=== PATIENT | female | born 1985 | race Caucasian/White ===

== ENCOUNTER 2017-08-17 21:39 | Emergency (ER) | payer MEDICAID, SELFPAY ==
[2017-08-17 21:42] VITALS: BP 156/102; PULSE 132; RESP 22; TEMP 36; O2SAT 100; BMI 42.9
--- NOTE | 2017-08-17 22:23 | EKG12_ITS ---
Test Reason : POSSIBLE PE Blood Pressure : / mmHG Vent. Rate : 111 BPM Atrial Rate : 111 BPM P-R Int : 138 ms QRS Dur : 092 ms QT Int : 360 ms P-R-T Axes : 037 008 033 degrees QTc Int : 489 ms Sinus tachycardia Low voltage QRS (limb leads) Poor R wave progression Confirmed by RIAJ UNDERWOOD, GONZALO ([id number]), department editor ROXANA PHILIP ([id number] on 08/19/2017 2:16:59 PM Referred By: DR HITCHCOCK Confirmed By:GONZALO GALO MD
--- NOTE | 2017-08-17 22:28 | ED.VISSUMM ---
- ER Visit Summary Date of Service: 08/17/17 Chief Complaint: Dyspnea History of Present Illness: The patient is a 32 F 3 day history worsening dyspnea. Worse with exertion. No chest pains. No nausea or vomiting. [facility] She moved from [place]. States was seen today in the office, had blood work with the high d-dimer. She was called and sent to the ED at 5 PM. She states she went to [place] ED, was told they did not have the capacity to manage her symptoms. She admits to an IV dye allergy that would cause dyspnea and bradycardia. 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 There is no unclear etiology. She did see a business management consultant, she is on warfarin for a year. She reports that business management consultant in [place] told her that she should be on blood thinners for lifetime. However when moved over to [place], she was taken off after year. [facility] she told this to her physicians. They are trying to obtain records. Denies tobacco history. Denies recent travel. She did have surgery in April with right oophorectomy and appendectomy. She had hysterectomy and left oophorectomy last summer. She states she had a clotting disorder workup and may have been told she has a clotting disorder however she can tell me what it was. However there is a family history of clotting disorders. Physical Examination: General: Alert and oriented ?3, no acute distress HEENT: Normocephalic, atraumatic. Moist mucosa membranes Neck: supple, nontender. Cardiovascular: Regular rate 96 and rhythm, no murmurs Respiratory: Normal breath sounds, symmetric, no distress Abdomen: Soft, nontender, nondistended Extremities: Nontender, no edema, pulses intact ?4 Neuro: no focal neurological deficits. Test Results: EKG sinus tachycardia 111. No ST or T-wave changes. Labs no platelets 248. Hemoglobin 13. Troponin negative. Chest x-ray 2 views obtained negative. Emergency Department Course and Treatment: Patient is tachycardic in triage on recheck on my exam was 96. She is monitored vitals remained stable. The patient reported history that her business management consultant one her anticoagulation and possible clotting disorder on top of the PE. This was stopped 2012 by her [place] physicians. Reported elevated d-dimer with dyspnea symptoms. Patient is a higher probability for PE. She was given a dose of Lovenox. She has significant IV dye allergy. She states she cannot give it even with pretreatment due to hypotension and shortness of breath in the past. I did speak with her covering physician at [facility] Dr. Smith, discussed with her history of high probability to go ahead and pretreat and keep her on anticoagulation with outpatient following and testing if needed. Stated she did not feel comfortable with this not knowing her history. I did speak with hospitalist, Dr. Sommer, states with patient stability there no indication for hospitalizations for treatment when she can be empirically placed on medications. Her labs chest x-ray on normal. patient was ambulate with the pulse ox, heart rate normal range, pulse ox 98%. Discussed with patient plan of care she agrees to being back on anticoagulation medicines. She will be given a Lovenox bridge for 1 week in warfarin 5 mg for 1 week, first dose given in the ED. She will call her physicians tomorrow. She can determine if she continues anticoagulation versus possibly get a V/Q as an outpatient while on these medications. She has tolerated this in the past [facility]. She had no reaction to VQ scan. She return if any worsening symptoms. Risk and benefits discussed with anticoagulation medicines. Her platelets are normal. Patient wishes to pursue With current plan of care. Treatment Plan: [] Disposition: Discharge Impression: Dyspnea with presumed pulmonary embolism This note was generated with NPTV dictation software. It may contain incorrect words, spelling, and punctuation that were not noted in review of the chart prior to signing ED Disposition - Plan for ED Patient: Disposition: Home or Assisted Living Chief Complaint: Shortness of Breath Diagnosis: Dyspnea Instructions: ED Dyspnea Shortness of Breath Prescriptions: Warfarin [Coumadin] 5 mg PO DAILY #7 tablet Enoxaparin Sodium [Lovenox] 120 mg SQ BID #14 syringe Referrals: Georgina Machado, TIFF-C [Primary Care Provider] - 1 Day Additional Instructions: Dyspnea with presumed PE. Vital signs stable. Started on warfarin and Lovenox in the ED. Seven-day prescriptions are written. Follow-up with your doctor tomorrow, determine if they would want to get a VQ scan as an outpatient versus continued empiric treatment with your history.
--- NOTE | 2017-08-17 22:28 | ED.RN ---
NO OLD EKGS IN MUSE.
--- NOTE | 2017-08-17 22:33 | ED.DCSUM_ITS ---
- ER Visit Summary Date of Service: 08/17/17 Chief Complaint: Dyspnea History of Present Illness: The patient is a 32 F 3 day history worsening dyspnea. Worse with exertion. No chest pains. No nausea or vomiting. Patient recently started seeing [facility]. She moved from [place]. States was seen today in the office, had blood work with the high d- dimer. She was called and sent to the ED at 5 PM. She states she went to [place] ED, was told they did not have the capacity to manage her symptoms. She admits to an IV dye allergy that would cause dyspnea and bradycardia. 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 There is no unclear etiology. She did see a order takers supervisor, she is on warfarin for a year. She reports that order takers supervisor in [place] told her that she should be on blood thinners for lifetime. However when moved over to [place], she was taken off after year. [facility] she told this to her physicians. They are trying to obtain records. Denies tobacco history. Denies recent travel. She did have surgery in April with right oophorectomy and appendectomy. She had hysterectomy and left oophorectomy last summer. She states she had a clotting disorder workup and may have been told she has a clotting disorder however she can tell me what it was. However there is a family history of clotting disorders. Physical Examination: General: Alert and oriented ?3, no acute distress HEENT: Normocephalic, atraumatic. Moist mucosa membranes Neck: supple, nontender. Cardiovascular: Regular rate 96 and rhythm, no murmurs Respiratory: Normal breath sounds, symmetric, no distress Abdomen: Soft, nontender, nondistended Extremities: Nontender, no edema, pulses intact ?4 Neuro: no focal neurological deficits. Test Results: EKG sinus tachycardia 111. No ST or T-wave changes. Labs no platelets 248. Hemoglobin 13. Troponin negative. Chest x-ray 2 views obtained negative. Emergency Department Course and Treatment: Patient is tachycardic in triage on recheck on my exam was 96. She is monitored vitals remained stable. The patient reported history that her order takers supervisor one her anticoagulation and possible clotting disorder on top of the PE. This was stopped 2012 by her [place] physicians. Reported elevated d-dimer with dyspnea symptoms. Patient is a higher probability for PE. She was given a dose of Lovenox. She has significant IV dye allergy. She states she cannot give it even with pretreatment due to hypotension and shortness of breath in the past. I did speak with her covering physician at [facility] Dr. Smith, discussed with her history of high probability to go ahead and pretreat and keep her on anticoagulation with outpatient following and testing if needed. Stated she did not feel comfortable with this not knowing her history. I did speak with hospitalist, Dr. Sommer, states with patient stability there no indication for hospitalizations for treatment when she can be empirically placed on medications. Her labs chest x-ray on normal. patient was ambulate with the pulse ox, heart rate normal range, pulse ox 98%. Discussed with patient plan of care she agrees to being back on anticoagulation medicines. She will be given a Lovenox bridge for 1 week in warfarin 5 mg for 1 week, first dose given in the ED. She will call her physicians tomorrow. She can determine if she continues anticoagulation versus possibly get a V/Q as an outpatient while on these medications. She has tolerated this in the past [facility]. She had no reaction to VQ scan. She return if any worsening symptoms. Risk and benefits discussed with anticoagulation medicines. Her platelets are normal. Patient wishes to pursue With current plan of care. Treatment Plan: [] Disposition: Discharge Impression: Dyspnea with presumed pulmonary embolism This note was generated with InRadio dictation software. It may contain incorrect words, spelling, and punctuation that were not noted in review of the chart prior to signing ED Disposition - Plan for ED Patient: Disposition: Home or Assisted Living Chief Complaint: Shortness of Breath Diagnosis: Dyspnea Instructions: ED Dyspnea Shortness of Breath Prescriptions: Warfarin [Coumadin] 5 mg PO DAILY #7 tablet Enoxaparin Sodium [Lovenox] 120 mg SQ BID #14 syringe Referrals: Georgina Machado, TIFF-C [Primary Care Provider] - 1 Day Additional Instructions: Dyspnea with presumed PE. Vital signs stable. Started on warfarin and Lovenox in the ED. Seven-day prescriptions are written. Follow-up with your doctor tomorrow, determine if they would want to get a VQ scan as an outpatient versus continued empiric treatment with your history.
[2017-08-17 22:46] LABS: Absolute Lymphocyte Count 2.71 X10^3/ul (0.83-4.51); Absolute Neutrophil Count 5.2 X10^3/uL (2.0-7.7); Basophil# 0.03 X10^3/uL; Basophil% 0.4 % (0-1); Eosinophil# 0.13 X10^3/uL; Eosinophils% 1.5 % (0-5); Hematocrit 40.9 % (37-47); Hemoglobin 13.1 g/dl (12.0-15.0); Lymphocyte # 2.71 X10^3/ul (4.0); Lymphocyte % 31.7 % (19-41); Mean Corpuscular Hgb 27.9 pg (27.0-32.0); Mean Corpuscular Volume 87.2 fL (81-99); Mean Platelet Vol. 9.9 fl (6.2-12.0); Monocyte# 0.41 X10^3/uL; Monocyte% 4.8 % (0-10); Neutrophil # 5.18 X10^3/uL (2.7-7.7); Neutrophil % 60.7 % (47-70); POSITIVE COUNT NO; POSITIVE DIFFERENTIAL NO; POSITIVE MORPHOLOGY NO; Platelet Count 248 K/mm3 (150-450); RBC Distribution Width CV 14.1 % (11.6-14.6); RBC Distribution Width SD 44.3 fl (35.1-43.9); Red Blood Count 4.69 M/mm3 (4.2-5.4); White Blood Count 8.5 K/mm3 (4.4-11.0)
[2017-08-17 22:55] LABS: Prothrombin Time (Protime)PT. 13.1 SECONDS (11.7-14.9)
[2017-08-17 22:56] LABS: Partial Thromboplast Time 35.4 Seconds (24.1-36.2)
[2017-08-17 23:01] LABS: Anion Gap 6 (5-15); BUN 13 mg/dL (7-18); BUN/Creat Ratio 14.5 RATIO (10-20); Calcium,Total 9.1 mg/dL (8.5-10.1); Chloride 104 mmol/L (98-107); EST Glomerular Filtration Rate 76 mL/min (>60); Est Glom Filt Rate - Afr Amer 92 mL/min (>60); Estimated Creatinine Clearance 76.06 ml/min; Glucose 91 mg/dL (74-106); Potassium 3.8 mmol/L (3.5-5.1); Sodium Level 140 mmol/L (136-145)
--- NOTE | 2017-08-17 23:05 | RAD_ITS ---
STUDY: X-RAY CHEST REASON FOR EXAM: Female, 32 years old. Elevated d-dimer. Short of breath. Previous PEs. TECHNIQUE: Frontal and lateral views of the chest. COMPARISON: None. FINDINGS: The lungs are clear and expanded. There is no demonstrated pleural abnormality. Normal size heart. Normal mediastinum and brandon. Normal visualized pulmonary arteries. Normal visualized aortic arch and descending thoracic aorta. Normal visualized thoracic spine. Normal visualized ribs, clavicles, and shoulders. There is no demonstrated abnormality of the visualized soft tissue structures of the upper abdomen. RAD/Chest PA and Lateral IMPRESSION: Normal x-ray examination of the chest. Electronically Signed: Bello Galvez MD at 23:21 EDT , Service support ,
[2017-08-17] MEDS: Enoxaparin 120 MG/0.8 ML Syringe SC (23:32)
[2017-08-17 23:42] VITALS: BP 142/79; PULSE 84; RESP 16; O2SAT 98
[2017-08-18 00:46] VITALS: BP 117/86; PULSE 94; RESP 18; O2SAT 98
== END 2017-08-18 00:47 | disposition home or self-care (01) ==
PROVIDERS: Emergency Provider Emergency Medicine; Family Provider Nurse Practitioner Family; PCP Nurse Practitioner Family
DX: R06.00 Dyspnea, unspecified (principal); Z83.2 Family history of diseases of the blood and blood-forming organs and certain disorders involving the immune mechanism; I10 Essential (primary) hypertension; J45.909 Unspecified asthma, uncomplicated; Z86.711 Personal history of pulmonary embolism; Z79.01 Long term (current) use of anticoagulants
CPT/HCPCS: 71046; 80048; 84484; 85025; 85610; 85730; 93005; 96372; 99284; A4216

== ENCOUNTER 2022-09-26 05:49 | Emergency (ER) | payer MEDICAID, SELFPAY ==
[2022-09-26 05:50] VITALS: BP 148/90; PULSE 120; RESP 18; TEMP 36.7; O2SAT 97; BMI 34.4
--- NOTE | 2022-09-26 06:21 | ED.VIS.GI ---
HPI HPI - GI History of Present Illness Chief Complaint: Nausea/Vomiting Narrative Narrative: 37-year-old female presenting with nausea, vomiting, diarrhea. She states has been going on for 2 months. She had stool studies done which were normal. She has not had any fevers or chills. Her potassium gets low from all of her vomiting. She states she is lost 77 pounds in the last few months. She states previously she had been admitted to [facility] for IV fluids. She states she was admitted for days. She states that her kidneys were fine they just told her she was dehydrated. She states he had a CT done about a month ago which was normal. She had a right upper quadrant ultrasound which was normal. [facility] Medical History Anemia Anxiety Asthma Endometriosis History of pulmonary embolus (PE) LV dysfunction Seasonal allergies TIA (transient ischemic attack) Vitamin B deficiency Home Medications enoxaparin 120 mg/0.8 mL subcutaneous syringe 120 mg (0.8 mL) SQ BID ##14 08/18/17 [Rx Last Taken Unknown] Lactobacillus acidophilus 10 mg PO DAILY 12/14/18 [History Last Taken Unknown] albuterol sulfate 90 mcg/actuation aerosol inhaler (Ventolin HFA) 2 puff inhalation Q4H PRN shortness of breath or wheezing 12/14/18 [History Last Taken Unknown] azelastine 137 mcg (0.1 %) nasal spray aerosol 1 spray intranasal BID 12/14/18 [History Last Taken Unknown] cholecalciferol (vitamin D3) 25 mcg (1,000 unit) capsule 1,500 unit PO DAILY 12/14/18 [History Last Taken Unknown] ferrous sulfate 325 mg (65 mg iron) tablet 325 mg PO DAILY 12/14/18 [History Last Taken Unknown] fexofenadine 180 mg tablet (Donna Allergy) 180 mg PO DAILY 12/14/18 [History Last Taken Unknown] mecobalamin (vitamin B12) 1,000 mcg disintegrating tablet,sublingual 1,000 mcg sublingual DAILY 12/14/18 [History Last Taken Unknown] nitrofurantoin monohydrate/macrocrystals 100 mg capsule (Macrobid) 100 mg PO Q12H 7 days #14 caps 09/26/22 [Rx Last Taken Unknown] Allergy/AdvReac Type Severity Reaction Status Date / Time acetaminophen [From Vicodin] Allergy Hives Verified 09/26/22 05:56 amoxicillin Allergy Anaphylaxis Verified 09/26/22 05:56 aspirin Allergy Other Verified 09/26/22 05:56 beclomethasone Allergy Other Verified 09/26/22 05:56 budesonide Allergy Nausea/Vom/ Verified 09/26/22 05:56 Diarrhea cephalexin Allergy Hives Verified 09/26/22 05:56 ciprofloxacin Allergy Hives Verified 09/26/22 05:56 clobetasol Allergy Rash Verified 09/26/22 06:07 clonazepam [From Klonopin] Allergy Anaphylaxis Verified 09/26/22 05:56 codeine Allergy Hives Verified 09/26/22 05:56 diclofenac Allergy Shortness Verified 09/26/22 05:56 of breath droperidol Allergy Hives Verified 09/26/22 06:07 fosfomycin Allergy PT UNSURE Verified 09/26/22 06:07 OF REACTION hydrocodone [From Vicodin] Allergy Hives Verified 09/26/22 05:56 ibuprofen Allergy Nausea/Vom/ Verified 09/26/22 05:56 Diarrhea Iodine and Iodide Containing Allergy Other Verified 09/26/22 05:56 Produc ketorolac Allergy Unknown Verified 09/26/22 05:56 latex Allergy Unknown Verified 09/26/22 05:56 meperidine [From Demerol] Allergy Shortness Verified 09/26/22 05:56 of breath metoclopramide [From Reglan] Allergy Shortness Verified 09/26/22 05:56 of breath metoprolol Allergy Unknown Verified 09/26/22 05:56 metronidazole [From Flagyl] Allergy Hives Verified 09/26/22 05:56 miconazole Allergy Hives Verified 09/26/22 06:07 montelukast [From Singulair] Allergy Hives Verified 09/26/22 05:56 naproxen Allergy Shortness Verified 09/26/22 05:56 of breath nitrofurantoin Allergy Nausea/Vom/ Verified 09/26/22 05:56 Diarrhea ondansetron [From Zofran] Allergy Other Verified 09/26/22 05:56 oxycodone Allergy Shortness Verified 09/26/22 05:56 of breath paroxetine Allergy Nausea/Vom/ Verified 09/26/22 05:56 Diarrhea prochlorperazine Allergy Hives Verified 09/26/22 06:07 ropinirole [From Requip] Allergy Hives Verified 09/26/22 05:56 sertraline [From Zoloft] Allergy Hives Verified 09/26/22 05:56 sulfamethoxazole Allergy Hives Verified 09/26/22 05:56 temazepam [From Restoril] Allergy Nausea/Vom/ Verified 09/26/22 05:56 Diarrhea tetracycline Allergy Hives Verified 09/26/22 05:56 topiramate [From Topamax] Allergy Shortness Verified 09/26/22 05:56 of breath tramadol Allergy Hives Verified 09/26/22 06:07 trimethoprim [From Bactrim] Allergy Hives Verified 09/26/22 05:56 venlafaxine [From Effexor] Allergy Other Verified 09/26/22 05:56 clindamycin AdvReac Other Verified 09/26/22 06:07 gentamicin AdvReac Itching Verified 09/26/22 05:56 pantoprazole AdvReac Upset Verified 09/26/22 06:07 Stomach Family History Mother COPD (chronic obstructive pulmonary disease) Hypertension Father COPD (chronic obstructive pulmonary disease) Grandmother Heart disease Cancer lung Grandfather Cancer lung Surgical History delivery delivered H/O: hysterectomy Social History Smoking Status: Never smoker ROS ROS ED Constitutional Constitutional ED: Denies chills or fever(s) ENT ENT ED: Denies rhinorrhea or sore throat Cardiovascular Cardiovascular: Denies chest pain or palpitations Respiratory/Chest Respiratory/Chest: Denies cough or dyspnea Gastrointestinal Gastrointestinal: Reports diarrhea, nausea and vomiting Genitourinary Genitourinary ED: Denies dysuria or hematuria Musculoskeletal Musculoskeletal: Denies arthralgias or back pain Integumentary Denies abscess Neurologic Neurologic: Denies headache(s) or paresthesias Psychiatric Psychiatric: Denies anxiety or depression Endocrine Endocrinology: Denies polydipsia or polyphagia EXAM Physical Exam Const Vital Signs: 09/26/22 05:50 Temperature 98.0 F Temperature Source Temporal Pulse Rate 120 H Respiratory Rate 18 Blood Pressure 148/90 H Blood Pressure Mean 109 Pulse Ox 97 Oxygen Delivery Method Room Air Positive well nourished General Appearance ED: NAD; Negative for pallor HEENT Reports moist mucous membranes normocephalic and atraumatic Eyes PERRL and EOMs intact bilaterally General Eye ED: Negative for scleral icterus Resp normal respiratory effort Effort and Inspection: Negative for respiratory distress Cardio regular rhythm Rate: tachycardic GI non-tender and non-distended Back/Spine no CVA tenderness Neuro CN's II-XII intact bilaterally, moves all extremities and no sensory deficits noted Sensorium / Orientation: alert Motor Exam: strength 5/5 throughout Psych mental status grossly normal Skin General Skin Exam: Negative for jaundice or pallor MDM MDM MDM Narrative Medical decision making narrative: Patient presenting with nausea, vomiting, diarrhea. Patient states is a chronic she has been seeing her primary care outpatient and having labs drawn. She states a few days ago her potassium was a little bit low at 3.2. Renal function is normal. Previous admissions for dehydration. Abdominal exam is unremarkable. Reviewed the medical record on clinic thank and she had a right upper quadrant ultrasound on 09/09/2022. CT of the abdomen pelvis was done on 09/07/2022. She states that she follow-up with a general surgeon since then who did not think her gallbladder was diseased. She states she has not had a bowel movement in 3 weeks. She is complaining of diarrhea however. Per the record she was admitted to [facility] and had a GI consult inpatient but requested due to outpatient follow-up. She had a UTI at that time. It looks like the urine culture grew out negative. The patient was on Macrobid and tolerated it. Even though her allergy list has at all and there is she still tolerated this. Does appear she has a UTI again today. This will be cultured. She will be placed on Macrobid. Potassium was repleted with 40 mEq p.o. potassium. She takes this daily at home. Renal function and electrolytes otherwise unremarkable. I do not believe she needs further lab work or imaging. She is amenable to this plan. She is discharged home in stable condition. Impression: 1. Nausea/vomiting 2. Diarrhea Lab Data Labs: Laboratory Results - last 24 hr 09/26/22 09/26/22 09/26/22 06:35 06:40 06:40 WBC 9.4 RBC 5.39 Hgb 14.8 Hct 44.5 MCV 82.6 MCH 27.5 MCHC 33.3 RDW Std Deviation 41.1 RDW Coeff of Hossein 13.9 Plt Count 286 MPV 10.5 Immature Gran % (Auto) 3.800 H Neut % (Auto) 68.4 Lymph % (Auto) 20.8 [place]on % (Auto) 5.5 Eos % (Auto) 0.1 Baso % (Auto) 1.4 H Absolute Neuts (auto) 6.4 Absolute Lymphs (auto) 1.95 Nucleated RBC % 0 Sodium 136 Potassium 2.9 L Chloride 95 L Carbon Dioxide 23.0 Anion Gap 18 H BUN 11 Creatinine 0.62 Estim Creat Clear Calc 105.20 Est GFR (MDRD) Af Amer 138 Est GFR (MDRD) Non-Af 114 BUN/Creatinine Ratio 17.8 Glucose 118 H Calcium 9.9 Total Bilirubin 1.90 H AST 11 L ALT 22 Alkaline Phosphatase 52 Total Protein 8.2 Albumin 4.0 Globulin 4.2 Albumin/Globulin Ratio 1.0 Lipase 60 Urine Color Red Urine Clarity Turbid Urine pH 7.0 Ur Specific [place] 1.020 Urine Protein 500 H Urine Glucose (UA) Normal Urine Ketones 15 H Urine Occult Blood 250 H Urine Nitrite Negative Urine Bilirubin Negative Urine Urobilinogen 1 H Ur Leukocyte Esterase Negative Urine RBC > 100 SEEN Urine WBC 0 SEEN Ur Squamous Epith Cells 0 SEEN Urine Bacteria 4+ Urine Mucus 0 SEEN Discharge Plan Triage Chief Complaint: Nausea/Vomiting ED Provider: Collin Rojo Dx/Rx/DC Orders Instructions: ED Vomiting (Adult) Prescriptions: New nitrofurantoin monohyd/m-cryst [Macrobid] 100 mg capsule 100 mg PO Q12H 7 Days Qty: 14 0RF Rx Instructions: must administer with a meal/food No Action azelastine 137 mcg (0.1 %) aerosol,spray 1 spray INTRANASAL BID fexofenadine [Donna Allergy] 180 mg tablet 180 mg PO DAILY albuterol sulfate [Ventolin HFA] 90 mcg/actuation HFA aerosol inhaler 2 puff INHALATION Q4H PRN (Reason: shortness of breath or wheezing) ferrous sulfate 325 mg (65 mg iron) tablet 325 mg PO DAILY cholecalciferol (vitamin D3) 1,000 unit capsule 1,500 unit PO DAILY mecobalamin (vitamin B12) 1,000 mcg tablet,disintegrating 1,000 mcg SUBLINGUAL DAILY Lactobacillus acidophilus Capsule 10 mg PO DAILY enoxaparin 120 MG/0.8 ML syringe 120 mg SQ BID Qty: 14 0RF Primary Care Provider: Georgina Machado NP Referrals: Georgina Machado NP, [employer] TRA[employer]PERVIS[employer]-C [Primary Care Provider] - Disposition Disposition: Home, Self Care
[2022-09-26 06:42] LABS: Mucous, Urine 0 SEEN /hpf (<or=2+); Squamous Epithelial Cells - UA 0 SEEN /hpf (5-10); White Blood Cells 0 SEEN /hpf (0-5)
[2022-09-26 06:48] LABS: Absolute Lymphocyte Count 1.95 X10^3/uL (0.83-4.51); Absolute Neutrophil Count 6.4 X10^3/uL (2.0-7.7); Basophil# 0.13 X10^3/uL; Basophil% 1.4 % (0-1); Eosinophil# 0.01 X10^3/uL; Eosinophils% 0.1 % (0-5); Hematocrit 44.5 % (37-47); Hemoglobin 14.8 g/dL (12.0-15.0); Lymphocyte # 1.95 X10^3/ul (0.83-4.51); Lymphocyte % 20.8 % (19-41); Mean Corp Hgb Conc 33.3 g/dL (32-36); Mean Corpuscular Hgb 27.5 pg (27.0-32.0); Mean Corpuscular Volume 82.6 fL (81-99); Mean Platelet Vol. 10.5 fl (6.2-12.0); Monocyte# 0.52 X10^3/uL; Monocyte% 5.5 % (0-10); NRBC Flagged by Analyzer 0 % (0-5); Neutrophil # 6.41 X10^3/uL (2.7-7.7); Neutrophil % 68.4 % (47-70); Platelet Count 286 K/mm3 (150-450); RBC Distribution Width CV 13.9 % (11.6-14.6); RBC Distribution Width SD 41.1 fl (35.1-43.9); Red Blood Count 5.39 M/mm3 (4.2-5.4); White Blood Count 9.4 K/mm3 (4.4-11.0)
[2022-09-26 06:55] LABS: Color, Urine Red (Yellow); Glucose, Dipstick Normal (Normal); Ketone-Dipstick 15 mg/dl (Negative); Leukocyte Esterase-Dipstick Negative /ul (Negative); Nitrite-Dipstick Negative (Negative); Occult Blood-Urine 250 /ul (Negative); Protein-Dipstick 500 mg/dl (Negative); Urine Bilirubin Dipstick Negative (Negative); Urine Clarity Turbid (Clear); Urine Urobilinogen 1 mg/dl (Normal)
[2022-09-26] MEDS: Ondansetron 4 MG/2 ML Vial IV (06:59)
[2022-09-26] MEDS: 0.9% Normal Saline 1,000 ML 999 ML IV ×2 (06:59→07:14)
--- NOTE | 2022-09-26 07:00 | ED.RN ---
PERN PT CAN TAKE IV ZOFRAN WITHOUT REACTION.
[2022-09-26 07:05] LABS: Bacteria 4+ /hpf (None Seen); Red Blood Cells-Urine > 100 SEEN /hpf (0-5)
[2022-09-26 07:09] LABS: AST(SGOT) 11 U/L (15-37); Alanine Aminotransfer ALT/SGPT 22 U/L (13-56); Alkaline Phosphatase 52 U/L (45-117); Anion Gap 18 (5-15); BUN 11 mg/dL (7-18); BUN/Creat Ratio 17.8 RATIO (10-20); Calcium,Total 9.9 mg/dL (8.5-10.1); Chloride 95 mmol/L (98-107); Creatinine, Serum 0.62 mg/dL (0.55-1.02); EST Glomerular Filtration Rate 114 mL/min (>60); Est Glom Filt Rate - Afr Amer 138 mL/min (>60); Globulin 4.2 g/dL (2.2-4.2); Glucose 118 mg/dL (74-106); Lipase 60 U/L (13-75); Potassium 2.9 mmol/L (3.5-5.1); Protein, Total 8.2 g/dL (6.4-8.2); Sodium Level 136 mmol/L (136-145)
[2022-09-26] MEDS: Potassium Chloride Oral Soln 20 MEQ/15 ML UDC 40 MEQ PO (07:56)
[2022-09-26] MEDS: Nitrofurantoin Macrocrystals 100 MG Capsule PO (08:01)
== END 2022-09-26 08:18 | disposition home or self-care (01) ==
PROVIDERS: Emergency Provider Student in an Organized Health Care Education/Training Program; PCP Nurse Practitioner Family; Visit Provider Student in an Organized Health Care Education/Training Program
DX: R11.2 Nausea with vomiting, unspecified (principal); R19.7 Diarrhea, unspecified; Z86.73 Personal history of transient ischemic attack (TIA), and cerebral infarction without residual deficits; Z79.899 Other long term (current) drug therapy; Z86.711 Personal history of pulmonary embolism
CPT/HCPCS: 99281 ×2; 80053; 81001; 83690; 85025; 96361; 96374; 99282; J2405